=== PATIENT | male | born 1995 | race Caucasian/White ===

== ENCOUNTER 2018-07-03 15:01 | Emergency (ER) | payer OTHER ==
--- NOTE | 2018-07-03 15:23 | EDM.PDOC ---
ED HPI GENERAL MEDICAL PROBLEM - General Chief Complaint: Lower Extremity Injury/Pain Stated Complaint: ANKLE INJURY @ WORK [phone] Time Seen by Provider: 07/03/18 15:20 Source of Information: Reports: Patient, RN, RN Notes Reviewed History Limitations: Reports: No Limitations - History of Present Illness INITIAL COMMENTS - FREE TEXT/NARRATIVE: Pt presents to ER by POV with c/o left ankle pain sustained today when he twisted his ankle. Pt was working and slipped on cattails injuring the left lower leg and ankle. Denies any other injury. Onset: Today Duration: Constant Location: Reports: Lower Extremity, Left Quality: Reports: Ache Severity: Severe Improves with: Reports: Immobilization Worsens with: Reports: Movement Associated Symptoms: Reports: No Other Symptoms Left Ankle Pain Score (Numeric/FACES): 5 - Related Data Allergies Allergy/AdvReac Type Severity Reaction Status Date / Time No Known Allergies Allergy Verified 07/03/18 15:15 Home Meds: Home Meds . [No Known Home Meds] 07/03/18 [History] Past Medical History - Past Health History Medical/Surgical History: Denies Medical/Surgical History Endocrine/Metabolic History: Reports: Obesity/BMI 30+ Social & Family History - Family History Family Medical History: Noncontributory - Living Situation & Occupation Living situation: Reports: with Family Review of Systems - Review of Systems Review Of Systems: ROS reveals no pertinent complaints other than HPI. ED EXAM, GENERAL - Physical Exam Exam: See Below Exam Limited By: No Limitations General Appearance: Alert, WD/WN, No Apparent Distress, Obese Head: Atraumatic, Normocephalic Neck: Normal Inspection Respiratory/Chest: No Respiratory Distress Cardiovascular: Normal Peripheral Pulses Back Exam: Normal Inspection Extremities: No Pedal Edema, Normal Capillary Refill, Joint Swelling (left lateral ankle), Leg Pain, Limited Range of Motion (left ankle with mod. soft tissue swelling, mild bruising, no erythema, the skin is intact). No: Angela's Sign, Increased Warmth, Redness Neurological: Alert, Oriented, Normal Cognition, No Motor/Sensory Deficits Psychiatric: Normal Mood Skin Exam: Warm, Dry, Intact ED TRAUMA EXTREMITY PROCEDURES - Splinting Left Lower Extremity Splint Site: left lower leg Pre-Procedure NV Status: Normal Post-Procedure NV Status: Normal Splint Material: Fiberglass Splint Design: Volar, Stirrup Applied & Form Fitted By: Provider Provider Post-Splint Application NV Check: NV Status Normal, Good Position Complications: No Course - Vital Signs Last Recorded V/S: Last Vital Signs Temp 36.7 C 07/03/18 15:12 Pulse 96 07/03/18 15:12 Resp 15 07/03/18 15:12 BP 124/63 07/03/18 15:12 Pulse Ox 99 07/03/18 15:12 - Orders/Labs/Meds Orders: Active Orders 24 hr Category Date Time Status DME for Discharge [COMM] Routine Oth 07/03/18 16:09 Ordered Meds: Medications Discontinued Medications Generic Name Dose Route Start Last Admin Trade Name Freq PRN Reason Stop Dose Admin Hydrocodone Bitart/Acetaminophen 1 tab 07/03/18 16:09 [place] 325-10 Mg PO 07/03/18 16:10 ONETIME ONE - Radiology Interpretation Free Text/Narrative:: X-ray left ankle: Bimalleolar soft tissue swelling, ankle joint effusion, large fracture fragment medial malleolar distal tibia and spiral nondisplaced diaphyseal fracture distal left fibula. See rad report. Departure - Departure Time of Disposition: 16:41 Disposition: Home, Self-Care 01 Condition: Fair Clinical Impression: Closed bimalleolar fracture with fracture of distal fibula, Work related injury Nondisplaced bimalleolar fracture of left ankle Qualifiers: Encounter type: initial encounter Fracture type: closed Qualified Code(s): S82.845A - Nondisplaced bimalleolar fracture of left lower leg, initial encounter for closed fracture - Discharge Information *PRESCRIPTION DRUG MONITORING PROGRAM REVIEWED*: No Instructions: Nondisplaced Bimalleolar Ankle Fracture Treated With Immobilization , Bone Grafting, Adult, Care After Forms: ED Department Discharge Additional Instructions: Rx: Hydrocodone APAP 10mg/325mg *Do not drive or work while under the influence of this medication. Rest and keep your left leg elevated. Use crutches. No weight bearing on left foot. Do not removed the splint. Call [facility] at [phone] Kerr on Friday, July 06 in [place]. - My Orders Last 24 Hours: My Active Orders 07/03/18 16:09 DME for Discharge [COMM] Routine - Assessment/Plan Last 24 Hours: My Active Orders 07/03/18 16:09 DME for Discharge [COMM] Routine
--- NOTE | 2018-07-03 15:48 | CR ---
Clinical history: 22-year-old male left ankle injury. Interpretation: 3 views left ankle confirm bimalleolar soft tissue swelling, ankle joint effusion, an d spiral nondisplaced distal diaphyseal fracture left fibula and medial malleolar fracture distal lef t tibia (large large avulsion fragment). Note: The tibiotalar mortise joint appears to remain symmetrically intact despite the fractures. CONCLUSION: Bimalleolar soft tissue swelling, ankle joint effusion, large fracture fragment medial ma lleolus distal tibia and spiral nondisplaced diaphyseal fracture distal left fibula.
[2018-07-03] MEDS ORDERED: Acetaminophen/HYDROcodone 325-10 MG Tab PO ONE (16:09)
== END 2018-07-03 16:59 | disposition home or self-care (01) ==
LOC: DL.ED 15:01
DX: S82.845A Nondisplaced bimalleolar fracture of left lower leg, initial encounter for closed fracture (principal); S82.55XA Nondisplaced fracture of medial malleolus of left tibia, initial encounter for closed fracture; S82.832A Other fracture of upper and lower end of left fibula, initial encounter for closed fracture; E66.9 Obesity, unspecified; Y99.0 Civilian activity done for income or pay
CPT/HCPCS: 73610-LT; 99284

== ENCOUNTER 2018-07-15 22:49 | Emergency (ER) | payer OTHER ==
--- NOTE | 2018-07-16 02:52 | EDM.PDOC ---
ED HPI GENERAL MEDICAL PROBLEM - General Chief Complaint: Lower Extremity Injury/Pain Stated Complaint: TROUBLE WITH BIG TOE IN CAST [phone] Time Seen by Provider: 07/16/18 02:51 Source of Information: Reports: Patient, RN, RN Notes Reviewed History Limitations: Reports: Language Barrier - History of Present Illness INITIAL COMMENTS - FREE TEXT/NARRATIVE: Pt to ER with c/o left great toe feeling cold and sore second toe. Patient has had recent surgery and is casted on the left lower leg. Patient states he has a cold burning sensation to the great toe, and feeling of a sharp feeling under the second toe at times. Denies numbness or tingling, pain to the toes. Onset: Gradual Right Feet Pain Score (Numeric/FACES): 3 - Related Data Allergies Allergy/AdvReac Type Severity Reaction Status Date / Time No Known Allergies Allergy Verified 07/15/18 22:56 Home Meds: Home Meds oxyCODONE HCl/Acetaminophen [Oxycodone-Acetaminophen 5-325] 1 tab PO ASDIRECTED PRN 07/15/18 [History] Past Medical History - Past Health History Medical/Surgical History: Denies Medical/Surgical History HEENT History: Reports: None Cardiovascular History: Reports: None Respiratory History: Reports: None Gastrointestinal History: Reports: None Genitourinary History: Reports: None Musculoskeletal History: Reports: None Neurological History: Reports: None Psychiatric History: Reports: None Endocrine/Metabolic History: Reports: Obesity/BMI 30+ Hematologic History: Reports: None Immunologic History: Reports: None Oncologic (Cancer) History: Reports: None Dermatologic History: Reports: None Social & Family History - Family History Family Medical History: Noncontributory - Tobacco Use Smoking Status *Q: Never Smoker - Caffeine Use Caffeine Use: Reports: Soda - Recreational Drug Use Recreational Drug Use: No - Living Situation & Occupation Living situation: Reports: with Family Review of Systems - Review of Systems Review Of Systems: ROS reveals no pertinent complaints other than HPI. ED EXAM, GENERAL - Physical Exam Exam: See Below Exam Limited By: No Limitations General Appearance: Alert, WD/WN, No Apparent Distress Eye Exam: Bilateral Eye: EOMI, Normal Inspection Ears: Normal External Exam, Hearing Grossly Normal Nose: Normal Inspection Throat/Mouth: Normal Inspection, Normal Voice, No Airway Compromise Head: Atraumatic, Normocephalic Neck: Normal Inspection Respiratory/Chest: No Respiratory Distress, Lungs Clear, Normal Breath Sounds, No Accessory Muscle Use, Chest Non-Tender Cardiovascular: Normal Peripheral Pulses, Regular Rate, Rhythm, No Edema, No Gallop, No JVD, No Murmur, No Rub GI/Abdominal: Normal Bowel Sounds, Soft, Non-Tender (Male) Exam: Deferred Rectal (Males) Exam: Deferred Back Exam: Normal Inspection, Full Range of Motion Extremities: Other (Left lower leg in cast. Great, second, and third toes are the only ones visible. All toes are warm with good CMS. No abnormality. ) Neurological: Alert, Oriented, Normal Cognition, No Motor/Sensory Deficits Psychiatric: Normal Affect, Normal Mood Skin Exam: Warm, Dry, Intact, Normal Color, No Rash Lymphatic: No Adenopathy Course - Vital Signs Last Recorded V/S: Last Vital Signs Temp 97.8 F 07/16/18 02:55 Pulse 84 07/16/18 02:55 Resp 15 07/16/18 02:55 BP 141/73 H 07/16/18 02:55 Pulse Ox 97 07/16/18 02:55 - Re-Assessments/Exams Free Text/Narrative Re-Assessment/Exam: 07/16/18 05:14 Great toe and second toe are warm and intact, good CMS. Gauze was placed under the second toe as it was rubbing on the cast. Patient states improvement. A slipper was placed over the toes on the left casted foot. Patient advised that this could be from neuropathy after the surgery. He states understanding. Patient is instructed to follow up with Dr. Kerr, which he states understanding. Departure - Departure Time of Disposition: 03:04 Disposition: Home, Self-Care 01 Condition: Good Clinical Impression: Neuropathy - Discharge Information *PRESCRIPTION DRUG MONITORING PROGRAM REVIEWED*: No *COPY OF PRESCRIPTION DRUG MONITORING REPORT IN PATIENT OLBO: No Instructions: Peripheral Neuropathy Referrals: PCP,Unobtain [Primary Care Provider] - Forms: ED Department Discharge Additional Instructions: Follow up with Dr. Kerr at your scheduled appointment Return to the ER with any worsening symptoms
== END 2018-07-16 03:10 | disposition home or self-care (01) ==
LOC: DL.ED 22:49
DX: G62.9 Polyneuropathy, unspecified (principal); E66.9 Obesity, unspecified; Z98.890 Other specified postprocedural states
CPT/HCPCS: 99283

== ENCOUNTER 2018-08-28 00:06 | Emergency (ER) | payer OTHER ==
--- NOTE | 2018-08-28 01:43 | EDM.PDOC ---
ED HPI GENERAL MEDICAL PROBLEM - General Chief Complaint: Skin Complaint Stated Complaint: SKIN INFECTION ON FOOT [phone] Time Seen by Provider: 08/28/18 01:50 Source of Information: Reports: Patient History Limitations: Reports: No Limitations - History of Present Illness INITIAL COMMENTS - FREE TEXT/NARRATIVE: C/o swelling redness, above left ankle. Recent ORIF 08/17. Odor to foot , wound mid adkins with drainage today and noted red area around when took boot off tonight . No fever or chills. Left Feet Pain Score (Numeric/FACES): 1 - Related Data Allergies Allergy/AdvReac Type Severity Reaction Status Date / Time No Known Allergies Allergy Verified 07/15/18 22:56 Past Medical History - Past Health History Medical/Surgical History: Denies Medical/Surgical History HEENT History: Reports: None Cardiovascular History: Reports: None Respiratory History: Reports: None Gastrointestinal History: Reports: None Genitourinary History: Reports: None Musculoskeletal History: Reports: None Neurological History: Reports: None Psychiatric History: Reports: None Endocrine/Metabolic History: Reports: Obesity/BMI 30+ Hematologic History: Reports: None Immunologic History: Reports: None Oncologic (Cancer) History: Reports: None Dermatologic History: Reports: None Social & Family History - Family History Family Medical History: Noncontributory - Caffeine Use Caffeine Use: Reports: Soda - Living Situation & Occupation Living situation: Reports: with Family ED ROS GENERAL - Review of Systems Review Of Systems: ROS reveals no pertinent complaints other than HPI. ED EXAM, SKIN/RASH Exam: See Below Exam Limited By: No Limitations General Appearance: Alert, No Apparent Distress, Obese Eye Exam: Bilateral Eye: EOMI Ears: Normal External Exam Nose: Normal Inspection Throat/Mouth: Normal Voice Head: Atraumatic, Normocephalic Neck: Normal Inspection Respiratory/Chest: No Respiratory Distress, Lungs Clear Cardiovascular: Normal Peripheral Pulses, Regular Rate, Rhythm Extremities: Redness (mid anterior adkins 2mm oen area crusted yellow drainage - left), Other (surgical incision bilateral ankle intact healed). No: Increased Warmth Neurological: Alert, Oriented Skin: Other (callous shafing to heel left) Course - Vital Signs Last Recorded V/S: Last Vital Signs Temp 98.0 F 08/28/18 01:38 Pulse 93 08/28/18 01:38 Resp 20 08/28/18 01:38 BP 139/94 H 08/28/18 01:38 Pulse Ox 98 08/28/18 01:38 - Orders/Labs/Meds Orders: Active Orders 24 hr Category Date Time Status CULTURE WOUND [RM] Stat Lab 08/28/18 01:54 Received Labs: Laboratory Tests 08/28/18 08/28/18 08/28/18 Range/Units 01:50 01:50 01:50 WBC 9.8 (5.0-10.0) 10^3/uL RBC 4.83 (4.6-6.2) 10^6/uL Hgb 13.9 L (14.0-18.0) g/dL Hct 42.4 (40.0-54.0) % MCV 87.8 (80-100) fL MCH 28.8 (27.0-34.0) pg MCHC 32.8 L (33.0-35.0) g/dL Plt Count 341 (150-450) 10^3/uL Neut % (Auto) 50.7 (42.2-75.2) % Lymph % (Auto) 24.3 (20.5-50.1) % [place] % (Auto) 15.1 H (2-8) % Eos % (Auto) 7.8 H (1.0-3.0) % Baso % (Auto) 2.1 H (0.0-1.0) % Add Manual Diff Yes Neutrophils % (Manual) 56 (42-75) % Band Neutrophils % 3 % Lymphocytes % (Manual) 23 (20-50) % Atypical Lymphs % 0 % Monocytes % (Manual) 10 H (2-8) % Eosinophils % (Manual) 5 H (1-3) % Basophils % (Manual) 3 Bizarre Platelets Rare Sodium 135 (135-145) mmol/L Potassium 4.0 (3.6-5.0) mmol/L Chloride 100 L (101-111) mmol/L Carbon Dioxide 25.0 (21.0-31.0) mmol/L Anion Gap 14.0 BUN 16 (7-18) mg/dL Creatinine 0.8 (0.6-1.3) mg/dL Est Cr Clr Drug Dosing 166.15 mL/min Estimated GFR (MDRD) > 60 BUN/Creatinine Ratio 20.00 Glucose 103 (74-105) mg/dL Lactic Acid 1.0 (0.5-2.2) mmol/L Calcium 9.0 (8.4-10.2) mg/dl Total Bilirubin 0.6 (0.2-1.0) mg/dL AST 36 (10-42) IU/L ALT 67 H (10-60) IU/L Alkaline Phosphatase 45 (42-121) IU/L Total Protein 8.3 H (6.7-8.2) g/dl Albumin 4.1 (3.2-5.5) g/dl Globulin 4.2 Albumin/Globulin Ratio 0.98 Departure - Departure Time of Disposition: 03:32 Disposition: Home, Self-Care 01 Condition: Good Clinical Impression: Skin infection, History of open reduction and internal fixation (ORIF) procedure - Discharge Information *PRESCRIPTION DRUG MONITORING PROGRAM REVIEWED*: Not Applicable Instructions: Cellulitis, Adult Referrals: PCP,None [Primary Care Provider] - Forms: ED Department Discharge Additional Instructions: elevate extremity keep area clean and dry wear light cotton sock while in boot, change and wash daily clinic follow up next week tylenol or ibuprofen for discomfort keflex 500mg one three times daily for one week - My Orders Last 24 Hours: My Active Orders 08/28/18 01:54 CULTURE WOUND [RM] Stat - Assessment/Plan Last 24 Hours: My Active Orders 08/28/18 01:54 CULTURE WOUND [RM] Stat
[2018-08-28 02:20] LABS: CHLORIDE,CL 100 mmol/L (101-111); SODIUM,NA 135 mmol/L (135-145)
== END 2018-08-28 03:55 | disposition home or self-care (01) ==
LOC: DL.ED 00:06
DX: L08.9 Local infection of the skin and subcutaneous tissue, unspecified (principal); E66.9 Obesity, unspecified; Z98.890 Other specified postprocedural states
CPT/HCPCS: 36415; 73610-LT; 80053; 83605; 85025; 87070; 87077; 87186; 99283